=== PATIENT | female | born 1965 ===

== ENCOUNTER 2020-03-13 19:37 | Inpatient (IN) ==
[2020-03-13] MEDS ORDERED: methylPREDNISolone SOD SUC 125 MG/2 ML VIAL IV STA (20:33)
[2020-03-13] MEDS ORDERED: SODIUM CHLORIDE 0.9% 500 ML IV STA (20:33)
[2020-03-13] MEDS ORDERED: AZITHROMYCIN INJ 500 MG in SODIUM CHLORIDE 0.9% 250 ML IV STA (20:33)
[2020-03-13 20:40] LABS: Basophils % 0.2 % (0.0-0.8); Hematocrit 38.4 VOL% (35.7-47.0); Hemoglobin 11.9 GM/DL (12.0-16.0); Immature Granulocytes Absolute 0.45 #; Lymphocytes # 0.9 10*3/uL (1.4-4.0); Lymphocytes % 5.8 % (21.3-54.2); Mean Corpuscular Volume 92.8 FL (87-102); Mean Platelet Volume 11.4 FL (9.6-12.0); Monocytes % 2.2 % (1.7-12.7); Neutrophils % 88.8 % (38.7-73.9); Platelet Count 378 T/CUMM (130-400); Red Blood Count 4.14 MC/CUMM (3.8-5.5); Red Cell Distribution Width 14.2 % (9.3-17.3); White Blood Count 15.1 T/CUMM (4-12)
[2020-03-13 20:48] LABS: INR 1.6
[2020-03-13 21:02] LABS: Apearance,Urine CLEAR (Clear); Bilirubin,Urine Negative (Negative); Blood, Urine Small mg/dL (Negative); Glucose,Urine (UA) Negative (Negative); Ketones,Urine 20 mg/dL (Negative); Mucus,Urine Few /LPF (Occasional); Nitrite,Urine Negative (Negative); Protein,Urine 30 MG/DL; RBC,Urine 8 /HPF (0-4); Squamous Epithelial Cell,Urine Occasional /HPF (0-10); Urine Color Amber (Yellow); WBC,Urine 1 /HPF (0-6)
[2020-03-13 21:10] LABS: Albumin 2.3 G/DL (3.4-5.0); Bilirubin,Total 0.7 MG/DL (0.2-1.0); Osmolality,Calculated 302.7 MOS/KG (273-304); Total Protein 7.5 G/DL (6.4-8.3)
[2020-03-13 21:13] LABS: ABG Base Excess 1.6 MMOL/L (-2.5-2.5); ABG HCO3 25.5 MMOL/L (20-26); ABG Oxygen Saturation 82.9 % (95-100); ABG PCO2 39.2 MM HG (35-48); ABG PH 7.429 (7.35-7.45); ABG PO2 47.6 MM HG (80-95); Allen Test Positive
[2020-03-13] MEDS ORDERED: POTASSIUM CHLORIDE RIDER 10 MEQ in PREMIX 1 EACH IV ONE (21:25)
[2020-03-13] MEDS ORDERED: PIPERACILLIN/TAZOBACTAM 3,375 MG in SODIUM CHLORIDE 0.9% 100 ML IV STA (21:37)
[2020-03-13] MEDS ORDERED: ONDANSETRON 4 MG/2 ML VIAL IV PRN (22:24)
[2020-03-13] MEDS ORDERED: GLUCAGON 1 MG VIAL IM PRN (22:24)
[2020-03-13] MEDS ORDERED: MORPHINE 4 MG/1 ML VIAL IV PRN (22:24)
[2020-03-13] MEDS ORDERED: DEXTROSE 50% 25 GM/50 ML VIAL IV PRN (22:24)
[2020-03-14] MEDS ORDERED: VANCOMYCIN 1,000 MG VIAL ONE
[2020-03-14] MEDS ORDERED: VANCOMYCIN INJ 1,000 MG in SODIUM CHLORIDE 0.9% 250 ML IV SCH (00:30)
[2020-03-14 05:33] LABS: Basophils % 0.1 % (0.0-0.8); Hemoglobin 11.2 GM/DL (12.0-16.0); Immature Granulocytes % 2.5 %; Immature Granulocytes Absolute 0.51 #; Lymphocytes # 0.7 10*3/uL (1.4-4.0); Lymphocytes % 3.6 % (21.3-54.2); Mean Corpuscular HGB Conc 31.1 GM/DL (32-36); Mean Corpuscular Volume 92.1 FL (87-102); Mean Platelet Volume 11.6 FL (9.6-12.0); Monocytes % 1.3 % (1.7-12.7); Neutrophils % 92.5 % (38.7-73.9); Platelet Count 357 T/CUMM (130-400); Red Blood Count 3.91 MC/CUMM (3.8-5.5); Red Cell Distribution Width 14.1 % (9.3-17.3); White Blood Count 20.2 T/CUMM (4-12)
[2020-03-14 05:55] LABS: Calcium 8.9 MG/DL (8.5-10.1); Osmolality,Calculated 307.6 MOS/KG (273-304)
[2020-03-14 06:09] LABS: Band Neutrophils 2 % (0-10); Hypochromasia 1+; Lymphocytes 5 % (20-55); Microcytosis Slight; Ovalocytes Slight; Platelet Estimate Normal; Segmented Neutrophils 91 % (50-85); Total Cells Counted 100
[2020-03-14] MEDS: POTASSIUM CHLORIDE RIDER 10 MEQ in PREMIX 1 EACH IV PRN ×8 (06:23→23:52)
[2020-03-14] MEDS: SODIUM CHLOR 0.45% KCL 20 MEQ 20 MEQ/1,000 ML BAG IV SCH ×2 (06:37→18:04)
[2020-03-14] MEDS: PIPERACILLIN/TAZOBACTAM 3,375 MG in SODIUM CHLORIDE 0.9% 100 ML IV SCH ×3 (06:37→22:29)
[2020-03-14] MEDS: ENOXAPARIN 40 MG/0.4 ML SYRINGE SUBCUT SCH (09:33)
[2020-03-14] MEDS: AZITHROMYCIN INJ 500 MG in SODIUM CHLORIDE 0.9% 250 ML IV SCH (20:55)
[2020-03-15] MEDS: POTASSIUM CHLORIDE RIDER 10 MEQ in PREMIX 1 EACH IV PRN ×2 (00:49→01:48)
[2020-03-15] MEDS: SODIUM CHLOR 0.45% KCL 20 MEQ 20 MEQ/1,000 ML BAG IV SCH (02:51)
[2020-03-15] MEDS: PIPERACILLIN/TAZOBACTAM 3,375 MG in SODIUM CHLORIDE 0.9% 100 ML IV SCH ×3 (06:13→21:30)
[2020-03-15] MEDS: POTASSIUM CHLORIDE 20 MEQ/15 ML UDCUP PER TUBE PRN ×3 (06:38→11:52)
[2020-03-15 09:18] LABS: Basophils % 0.1 % (0.0-0.8); Hematocrit 34.5 VOL% (35.7-47.0); Hemoglobin 10.9 GM/DL (12.0-16.0); Immature Granulocytes % 2.6 %; Immature Granulocytes Absolute 0.48 #; Lymphocytes # 1.2 10*3/uL (1.4-4.0); Lymphocytes % 6.5 % (21.3-54.2); Mean Corpuscular HGB Conc 31.6 GM/DL (32-36); Mean Corpuscular Volume 91.3 FL (87-102); Mean Platelet Volume 11.8 FL (9.6-12.0); Neutrophils % 88.8 % (38.7-73.9); Platelet Count 403 T/CUMM (130-400); Red Blood Count 3.78 MC/CUMM (3.8-5.5); Red Cell Distribution Width 14.3 % (9.3-17.3); White Blood Count 18.7 T/CUMM (4-12)
[2020-03-15 09:23] LABS: Calcium 8.5 MG/DL (8.5-10.1); Osmolality,Calculated 301.7 MOS/KG (273-304)
[2020-03-15] MEDS: ENOXAPARIN 40 MG/0.4 ML SYRINGE SUBCUT SCH (09:25)
[2020-03-15] MEDS ORDERED: LORazepam 0.5 MG TABLET PO PRN (11:22)
[2020-03-15] MEDS ORDERED: LORazepam 1 MG TABLET PO PRN (11:30)
[2020-03-15] MEDS: POTASSIUM CHLORIDE INJ 20 MEQ in LACTATED RINGERS 1,000 ML IV SCH (11:56)
[2020-03-15] MEDS: hydrALAZINE 20 MG/1 ML VIAL IV PRN (14:14)
[2020-03-15] MEDS: METOPROLOL TARTRATE 50 MG TABLET PO SCH ×2 (15:35→21:16)
[2020-03-15] MEDS: traZODone 50 MG TABLET PO SCH (21:14)
[2020-03-15] MEDS: risperiDONE 1 MG TABLET PO SCH (21:15)
[2020-03-15] MEDS: SIMVASTATIN 20 MG TABLET PO SCH (21:15)
[2020-03-15] MEDS: APIXABAN 5 MG TABLET PO SCH (21:15)
[2020-03-15] MEDS: SERTRALINE 100 MG TABLET PO SCH (21:15)
[2020-03-16 06:13] LABS: Basophils % 0.1 % (0.0-0.8); Hematocrit 35.7 VOL% (35.7-47.0); Hemoglobin 11.4 GM/DL (12.0-16.0); Immature Granulocytes % 1.3 %; Immature Granulocytes Absolute 0.18 #; Lymphocytes # 0.8 10*3/uL (1.4-4.0); Lymphocytes % 5.6 % (21.3-54.2); Mean Corpuscular HGB Conc 31.9 GM/DL (32-36); Mean Corpuscular Volume 89.3 FL (87-102); Monocytes % 2.2 % (1.7-12.7); Neutrophils % 90.8 % (38.7-73.9); Platelet Count 447 T/CUMM (130-400); Red Cell Distribution Width 13.9 % (9.3-17.3); White Blood Count 13.9 T/CUMM (4-12)
[2020-03-16] MEDS: PIPERACILLIN/TAZOBACTAM 3,375 MG in SODIUM CHLORIDE 0.9% 100 ML IV SCH ×3 (06:18→22:30)
[2020-03-16] MEDS: AZITHROMYCIN INJ 500 MG in SODIUM CHLORIDE 0.9% 250 ML IV SCH ×2 (06:18→21:30)
[2020-03-16 06:34] LABS: Calcium 8.5 MG/DL (8.5-10.1); Osmolality,Calculated 294.1 MOS/KG (273-304)
[2020-03-16 06:56] LABS: Hypochromasia 1+; Lymphocytes 4 % (20-55); Ovalocytes Slight; Platelet Estimate Adequate; Segmented Neutrophils 94 % (50-85); Total Cells Counted 100
[2020-03-16 06:57] LABS: Microcytosis Slight
[2020-03-16] MEDS: POTASSIUM CHLORIDE INJ 20 MEQ in LACTATED RINGERS 1,000 ML IV SCH ×2 (07:09→08:09)
[2020-03-16] MEDS: POTASSIUM CHLORIDE 20 MEQ TABLET PO PRN (09:00)
[2020-03-16] MEDS: lisinopriL 20 MG TABLET PO SCH (09:00)
[2020-03-16] MEDS: LEVOTHYROXINE 175 MCG TABLET PO SCH (09:00)
[2020-03-16] MEDS: SERTRALINE 100 MG TABLET PO SCH ×2 (09:00→20:56)
[2020-03-16] MEDS: APIXABAN 5 MG TABLET PO SCH ×2 (09:00→20:55)
[2020-03-16] MEDS: METOPROLOL TARTRATE 50 MG TABLET PO SCH ×2 (09:00→20:55)
[2020-03-16 13:40] LABS: ABG Base Excess 3.3 MMOL/L (-2.5-2.5); ABG HCO3 27.1 MMOL/L (20-26); ABG PCO2 36.2 MM HG (35-48); ABG PH 7.477 (7.35-7.45); ABG PO2 46.3 MM HG (80-95); ABG TCO2 23.7 MMOL/L (23-27)
[2020-03-16] MEDS: SODIUM CHLOR 0.45% KCL 20 MEQ 20 MEQ/1,000 ML BAG IV SCH (16:45)
[2020-03-16] MEDS: VANCOMYCIN INJ 1,500 MG in SODIUM CHLORIDE 0.9% 500 ML IV SCH (16:45)
[2020-03-16] MEDS: risperiDONE 1 MG TABLET PO SCH (20:55)
[2020-03-16] MEDS: traZODone 50 MG TABLET PO SCH (20:55)
[2020-03-16] MEDS: SIMVASTATIN 20 MG TABLET PO SCH (20:56)
[2020-03-17 02:38] LABS: Basophils % 0.1 % (0.0-0.8); Hematocrit 34.2 VOL% (35.7-47.0); Immature Granulocytes % 0.9 %; Immature Granulocytes Absolute 0.13 #; Lymphocytes # 0.9 10*3/uL (1.4-4.0); Lymphocytes % 6.5 % (21.3-54.2); Mean Corpuscular HGB Conc 32.2 GM/DL (32-36); Mean Corpuscular Volume 90.2 FL (87-102); Neutrophils % 89.5 % (38.7-73.9); Platelet Count 426 T/CUMM (130-400); Red Blood Count 3.79 MC/CUMM (3.8-5.5); White Blood Count 14.2 T/CUMM (4-12)
[2020-03-17 03:01] LABS: Albumin 1.8 G/DL (3.4-5.0); Bilirubin,Total 0.4 MG/DL (0.2-1.0); Osmolality,Calculated 291.4 MOS/KG (273-304); Total Protein 6.1 G/DL (6.4-8.3)
[2020-03-17] MEDS: VANCOMYCIN INJ 1,500 MG in SODIUM CHLORIDE 0.9% 500 ML IV SCH ×2 (03:05→17:09)
[2020-03-17 03:21] LABS: Allen Test Positive
[2020-03-17 03:23] LABS: ABG Base Excess 0.9 MMOL/L (-2.5-2.5); ABG HCO3 24.3 MMOL/L (20-26); ABG Oxygen Saturation 81.9 % (95-100); ABG PCO2 34.7 MM HG (35-48); ABG PH 7.464 (7.35-7.45); ABG PO2 47.5 MM HG (80-95); ABG TCO2 25.4 MMOL/L (23-27)
[2020-03-17] MEDS: POTASSIUM CHLORIDE RIDER 10 MEQ in PREMIX 1 EACH IV PRN ×3 (06:16→22:30)
[2020-03-17] MEDS: PIPERACILLIN/TAZOBACTAM 3,375 MG in SODIUM CHLORIDE 0.9% 100 ML IV SCH ×3 (06:18→22:30)
[2020-03-17] MEDS: POTASSIUM CHLORIDE 20 MEQ TABLET PO PRN (10:24)
[2020-03-17] MEDS: APIXABAN 5 MG TABLET PO SCH ×2 (10:24→22:06)
[2020-03-17] MEDS: lisinopriL 20 MG TABLET PO SCH (10:24)
[2020-03-17] MEDS: METOPROLOL TARTRATE 50 MG TABLET PO SCH ×2 (10:24→22:06)
[2020-03-17] MEDS: SERTRALINE 100 MG TABLET PO SCH ×2 (10:25→22:06)
[2020-03-17] MEDS: LEVOTHYROXINE 175 MCG TABLET PO SCH (10:25)
[2020-03-17] MEDS ORDERED: FUROSEMIDE 40 MG/4 ML VIAL IV ONE (14:52)
[2020-03-17] MEDS: SODIUM CHLOR 0.45% KCL 20 MEQ 20 MEQ/1,000 ML BAG IV SCH (17:07)
[2020-03-17] MEDS: AZITHROMYCIN INJ 500 MG in SODIUM CHLORIDE 0.9% 250 ML IV SCH (21:30)
[2020-03-17] MEDS: traZODone 50 MG TABLET PO SCH (22:06)
[2020-03-17] MEDS: SIMVASTATIN 20 MG TABLET PO SCH (22:06)
[2020-03-17] MEDS: risperiDONE 1 MG TABLET PO SCH (22:06)
[2020-03-18] MEDS: VANCOMYCIN INJ 1,500 MG in SODIUM CHLORIDE 0.9% 500 ML IV SCH (02:50)
[2020-03-18 04:30] LABS: ABG Base Excess -0.2 MMOL/L (-2.5-2.5); ABG HCO3 24.1 MMOL/L (20-26); ABG Oxygen Saturation 88.1 % (95-100); ABG PCO2 39.8 MM HG (35-48); ABG PH 7.398 (7.35-7.45); ABG PO2 56.9 MM HG (80-95); ABG TCO2 22.3 MMOL/L (23-27); Allen Test Positive
[2020-03-18] MEDS: PIPERACILLIN/TAZOBACTAM 3,375 MG in SODIUM CHLORIDE 0.9% 100 ML IV SCH ×2 (06:30→18:32)
[2020-03-18 08:15] LABS: Basophils % 0.2 % (0.0-0.8); Hematocrit 32.6 VOL% (35.7-47.0); Hemoglobin 10.1 GM/DL (12.0-16.0); Immature Granulocytes % 0.8 %; Immature Granulocytes Absolute 0.11 #; Lymphocytes % 7.2 % (21.3-54.2); Mean Corpuscular Volume 92.1 FL (87-102); Monocytes % 4.7 % (1.7-12.7); Neutrophils % 87.1 % (38.7-73.9); Platelet Count 380 T/CUMM (130-400); Red Blood Count 3.54 MC/CUMM (3.8-5.5); White Blood Count 13.5 T/CUMM (4-12)
[2020-03-18 08:48] LABS: Albumin 1.7 G/DL (3.4-5.0); Bilirubin,Total 0.4 MG/DL (0.2-1.0); Calcium 8.1 MG/DL (8.5-10.1); Osmolality,Calculated 295.1 MOS/KG (273-304); Total Protein 5.8 G/DL (6.4-8.3)
[2020-03-18] MEDS: APIXABAN 5 MG TABLET PO SCH ×2 (10:07→23:43)
[2020-03-18] MEDS: METOPROLOL TARTRATE 50 MG TABLET PO SCH ×2 (10:07→23:43)
[2020-03-18] MEDS: SERTRALINE 100 MG TABLET PO SCH ×2 (10:07→23:44)
[2020-03-18] MEDS: LEVOTHYROXINE 175 MCG TABLET PO SCH (10:07)
[2020-03-18] MEDS: lisinopriL 20 MG TABLET PO SCH (10:07)
[2020-03-18] MEDS: AZITHROMYCIN 250 MG TABLET PO SCH (14:57)
[2020-03-18] MEDS: POTASSIUM CHLORIDE RIDER 10 MEQ in PREMIX 1 EACH IV PRN ×4 (16:10→22:30)
[2020-03-18] MEDS: hydrALAZINE 20 MG/1 ML VIAL IV PRN (19:48)
[2020-03-18] MEDS: SODIUM CHLOR 0.45% KCL 20 MEQ 20 MEQ/1,000 ML BAG IV SCH (22:20)
[2020-03-18] MEDS: traZODone 50 MG TABLET PO SCH (23:43)
[2020-03-18] MEDS: SIMVASTATIN 20 MG TABLET PO SCH (23:44)
[2020-03-18] MEDS: risperiDONE 1 MG TABLET PO SCH (23:44)
[2020-03-19] MEDS: POTASSIUM CHLORIDE RIDER 10 MEQ in PREMIX 1 EACH IV PRN (00:30)
[2020-03-19] MEDS: PIPERACILLIN/TAZOBACTAM 3,375 MG in SODIUM CHLORIDE 0.9% 100 ML IV SCH ×2 (02:20→10:40)
[2020-03-19] MEDS: METOPROLOL TARTRATE 5 MG/5 ML VIAL IV SCH ×4 (03:30→21:59)
[2020-03-19] MEDS ORDERED: METOPROLOL TARTRATE 5 MG/5 ML VIAL IV SCH (04:00)
[2020-03-19 05:29] LABS: Allen Test Positive
[2020-03-19 05:32] LABS: ABG Base Excess 0.7 MMOL/L (-2.5-2.5); ABG HCO3 24.9 MMOL/L (20-26); ABG Oxygen Saturation 90.8 % (95-100); ABG PCO2 43.3 MM HG (35-48); ABG PH 7.385 (7.35-7.45); ABG PO2 62.5 MM HG (80-95); ABG TCO2 23.1 MMOL/L (23-27)
[2020-03-19 07:15] LABS: Basophils % 0.1 % (0.0-0.8); Hematocrit 36.1 VOL% (35.7-47.0); Hemoglobin 11.2 GM/DL (12.0-16.0); Immature Granulocytes % 0.7 %; Immature Granulocytes Absolute 0.09 #; Lymphocytes # 0.6 10*3/uL (1.4-4.0); Lymphocytes % 4.7 % (21.3-54.2); Mean Corpuscular Volume 92.1 FL (87-102); Neutrophils % 89.5 % (38.7-73.9); Platelet Count 380 T/CUMM (130-400); Red Blood Count 3.92 MC/CUMM (3.8-5.5); Red Cell Distribution Width 14.2 % (9.3-17.3); White Blood Count 13.6 T/CUMM (4-12)
[2020-03-19 07:41] LABS: Anisocytosis Slight; Lymphocytes 5 % (20-55); Platelet Estimate Normal; Poikilocytosis Slight; Segmented Neutrophils 87 % (50-85); Total Cells Counted 100
[2020-03-19 09:04] LABS: Albumin 1.9 G/DL (3.4-5.0); Bilirubin,Total 0.8 MG/DL (0.2-1.0); Calcium 8.2 MG/DL (8.5-10.1); Osmolality,Calculated 291.4 MOS/KG (273-304)
[2020-03-19] MEDS: APIXABAN 5 MG TABLET PO SCH ×2 (10:25→21:59)
[2020-03-19] MEDS: SODIUM CHLOR 0.45% KCL 20 MEQ 20 MEQ/1,000 ML BAG IV SCH (10:27)
[2020-03-19] MEDS: lisinopriL 20 MG TABLET PO SCH (10:33)
[2020-03-19] MEDS: SERTRALINE 100 MG TABLET PO SCH ×2 (10:34→22:00)
[2020-03-19] MEDS: LEVOTHYROXINE 175 MCG TABLET PO SCH (10:34)
[2020-03-19] MEDS: AZITHROMYCIN 250 MG TABLET PO SCH (10:34)
[2020-03-19] MEDS: SODIUM CHLORIDE 0.45% 1,000 ML IV SCH (12:29)
[2020-03-19] MEDS: carvediloL 12.5 MG TABLET PO SCH ×2 (18:36→18:37)
[2020-03-19] MEDS: SIMVASTATIN 20 MG TABLET PO SCH (21:59)
[2020-03-19] MEDS: risperiDONE 1 MG TABLET PO SCH (21:59)
[2020-03-19] MEDS: traZODone 50 MG TABLET PO SCH (21:59)
[2020-03-20] MEDS: METOPROLOL TARTRATE 5 MG/5 ML VIAL IV SCH ×4 (03:04→22:08)
[2020-03-20 04:22] LABS: ABG Base Excess 4.9 MMOL/L (-2.5-2.5); ABG HCO3 28.7 MMOL/L (20-26); ABG Oxygen Saturation 90.3 % (95-100); ABG PCO2 44.9 MM HG (35-48); ABG PO2 58.4 MM HG (80-95); ABG TCO2 27.1 MMOL/L (23-27); Allen Test Positive
[2020-03-20 05:07] LABS: Basophils % 0.2 % (0.0-0.8); Hematocrit 34.6 VOL% (35.7-47.0); Hemoglobin 10.8 GM/DL (12.0-16.0); Immature Granulocytes % 0.7 %; Immature Granulocytes Absolute 0.07 #; Lymphocytes # 0.7 10*3/uL (1.4-4.0); Lymphocytes % 6.5 % (21.3-54.2); Mean Corpuscular HGB Conc 31.2 GM/DL (32-36); Mean Corpuscular Volume 91.3 FL (87-102); Mean Platelet Volume 12.5 FL (9.6-12.0); Monocytes % 6.4 % (1.7-12.7); Neutrophils % 86.2 % (38.7-73.9); Platelet Count 343 T/CUMM (130-400); Red Blood Count 3.79 MC/CUMM (3.8-5.5); Red Cell Distribution Width 14.2 % (9.3-17.3); White Blood Count 10.1 T/CUMM (4-12)
[2020-03-20 05:30] LABS: Calcium 8.3 MG/DL (8.5-10.1); Osmolality,Calculated 294.6 MOS/KG (273-304)
[2020-03-20] MEDS: SODIUM CHLORIDE 0.45% 1,000 ML IV SCH (08:39)
[2020-03-20] MEDS: APIXABAN 5 MG TABLET PO SCH ×2 (10:16→21:35)
[2020-03-20] MEDS: POTASSIUM CHLORIDE RIDER 10 MEQ in PREMIX 1 EACH IV PRN ×2 (10:16→13:15)
[2020-03-20] MEDS: carvediloL 12.5 MG TABLET PO SCH ×2 (10:16→17:18)
[2020-03-20] MEDS: LEVOTHYROXINE 175 MCG TABLET PO SCH (10:16)
[2020-03-20] MEDS: SERTRALINE 100 MG TABLET PO SCH ×2 (10:16→22:03)
[2020-03-20] MEDS: lisinopriL 20 MG TABLET PO SCH (10:56)
[2020-03-20] MEDS: INSULIN LISPRO 100 UNIT/ML SUBCUT SCH ×2 (13:15→18:24)
[2020-03-20] MEDS ORDERED: INSULIN NPH 100 UNIT/ML SUBCUT SCH (16:30)
[2020-03-20] MEDS: SIMVASTATIN 20 MG TABLET PO SCH (20:55)
[2020-03-20] MEDS: traZODone 50 MG TABLET PO SCH (22:01)
[2020-03-20] MEDS: risperiDONE 1 MG TABLET PO SCH (22:03)
[2020-03-21] MEDS: INSULIN LISPRO 100 UNIT/ML SUBCUT SCH ×5 (01:26→23:52)
[2020-03-21 03:07] LABS: ABG Base Excess 4.4 MMOL/L (-2.5-2.5); ABG HCO3 29.4 MMOL/L (20-26); ABG Oxygen Saturation 87.1 % (95-100); ABG PCO2 45.9 MM HG (35-48); ABG PH 7.425 (7.35-7.45); ABG PO2 54.1 MM HG (80-95); ABG TCO2 30.9 MMOL/L (23-27)
[2020-03-21] MEDS: METOPROLOL TARTRATE 5 MG/5 ML VIAL IV SCH (06:16)
[2020-03-21] MEDS: SODIUM CHLORIDE 0.45% 1,000 ML IV SCH (06:16)
[2020-03-21] MEDS: carvediloL 12.5 MG TABLET PO SCH ×2 (09:39→17:45)
[2020-03-21] MEDS: lisinopriL 20 MG TABLET PO SCH (09:39)
[2020-03-21] MEDS: LEVOTHYROXINE 175 MCG TABLET PO SCH (09:41)
[2020-03-21] MEDS: APIXABAN 5 MG TABLET PO SCH ×2 (09:41→20:25)
[2020-03-21] MEDS: SERTRALINE 100 MG TABLET PO SCH ×2 (09:41→20:25)
[2020-03-21] MEDS: SIMVASTATIN 20 MG TABLET PO SCH (20:25)
[2020-03-21] MEDS: risperiDONE 1 MG TABLET PO SCH (20:25)
[2020-03-21] MEDS: traZODone 50 MG TABLET PO SCH (20:25)
[2020-03-22 03:17] LABS: Basophils % 0.3 % (0.0-0.8); Hematocrit 32.5 VOL% (35.7-47.0); Hemoglobin 10.4 GM/DL (12.0-16.0); Immature Granulocytes % 0.4 %; Immature Granulocytes Absolute 0.03 #; Lymphocytes # 0.8 10*3/uL (1.4-4.0); Lymphocytes % 10.3 % (21.3-54.2); Mean Platelet Volume 12.6 FL (9.6-12.0); Monocytes % 5.5 % (1.7-12.7); Neutrophils % 83.5 % (38.7-73.9); Platelet Count 228 T/CUMM (130-400); Red Blood Count 3.65 MC/CUMM (3.8-5.5); White Blood Count 7.8 T/CUMM (4-12)
[2020-03-22 03:36] LABS: Calcium 7.9 MG/DL (8.5-10.1); Osmolality,Calculated 284.3 MOS/KG (273-304)
[2020-03-22] MEDS: SODIUM CHLORIDE 0.45% 1,000 ML IV SCH (04:23)
[2020-03-22 04:25] LABS: ABG Base Excess 6.2 MMOL/L (-2.5-2.5); ABG HCO3 29.8 MMOL/L (20-26); ABG Oxygen Saturation 84.6 % (95-100); ABG PCO2 42.7 MM HG (35-48); ABG PH 7.464 (7.35-7.45); ABG PO2 48.3 MM HG (80-95); ABG TCO2 27.6 MMOL/L (23-27); Allen Test Positive
[2020-03-22] MEDS: INSULIN LISPRO 100 UNIT/ML SUBCUT SCH ×3 (06:01→18:23)
[2020-03-22] MEDS: carvediloL 12.5 MG TABLET PO SCH ×2 (10:27→18:23)
[2020-03-22] MEDS: APIXABAN 5 MG TABLET PO SCH ×2 (10:27→21:09)
[2020-03-22] MEDS: lisinopriL 20 MG TABLET PO SCH (10:27)
[2020-03-22] MEDS: LEVOTHYROXINE 175 MCG TABLET PO SCH (10:27)
[2020-03-22] MEDS: SERTRALINE 100 MG TABLET PO SCH ×2 (10:27→21:09)
[2020-03-22] MEDS: SIMVASTATIN 20 MG TABLET PO SCH (21:09)
[2020-03-22] MEDS: traZODone 50 MG TABLET PO SCH (21:09)
[2020-03-22] MEDS: risperiDONE 1 MG TABLET PO SCH (21:09)
[2020-03-23] MEDS: INSULIN LISPRO 100 UNIT/ML SUBCUT SCH ×5 (00:10→23:00)
[2020-03-23] MEDS: carvediloL 12.5 MG TABLET PO SCH ×2 (10:57→19:00)
[2020-03-23] MEDS: SERTRALINE 100 MG TABLET PO SCH ×2 (10:57→21:40)
[2020-03-23] MEDS: LEVOTHYROXINE 175 MCG TABLET PO SCH (10:57)
[2020-03-23] MEDS: lisinopriL 20 MG TABLET PO SCH (10:57)
[2020-03-23] MEDS: APIXABAN 5 MG TABLET PO SCH ×2 (10:57→21:40)
[2020-03-23] MEDS: SIMVASTATIN 20 MG TABLET PO SCH (21:40)
[2020-03-23] MEDS: traZODone 50 MG TABLET PO SCH (21:40)
[2020-03-23] MEDS: risperiDONE 1 MG TABLET PO SCH (21:40)
[2020-03-24 05:52] LABS: Basophils % 0.2 % (0.0-0.8); Eosinophils % 0.1 % (0.00-10.9); Hematocrit 31.4 VOL% (35.7-47.0); Hemoglobin 9.8 GM/DL (12.0-16.0); Immature Granulocytes % 0.4 %; Immature Granulocytes Absolute 0.04 #; Lymphocytes # 0.9 10*3/uL (1.4-4.0); Lymphocytes % 8.9 % (21.3-54.2); Mean Corpuscular HGB Conc 31.2 GM/DL (32-36); Mean Corpuscular Volume 90.8 FL (87-102); Mean Platelet Volume 12.9 FL (9.6-12.0); Neutrophils % 85.4 % (38.7-73.9); Platelet Count 218 T/CUMM (130-400); Red Blood Count 3.46 MC/CUMM (3.8-5.5); Red Cell Distribution Width 13.6 % (9.3-17.3); White Blood Count 9.9 T/CUMM (4-12)
[2020-03-24 06:29] LABS: Calcium 8.3 MG/DL (8.5-10.1); Osmolality,Calculated 275.7 MOS/KG (273-304)
[2020-03-24] MEDS: INSULIN LISPRO 100 UNIT/ML SUBCUT SCH ×3 (07:22→18:42)
[2020-03-24] MEDS: APIXABAN 5 MG TABLET PO SCH ×2 (08:47→20:46)
[2020-03-24] MEDS: lisinopriL 20 MG TABLET PO SCH (08:47)
[2020-03-24] MEDS: LEVOTHYROXINE 175 MCG TABLET PO SCH (08:47)
[2020-03-24] MEDS: carvediloL 12.5 MG TABLET PO SCH ×2 (08:47→17:20)
[2020-03-24] MEDS: SERTRALINE 100 MG TABLET PO SCH ×2 (08:47→20:47)
[2020-03-24] MEDS ORDERED: POTASSIUM CHLORIDE INJ 50 MEQ in SODIUM CHLORIDE 0.9% 500 ML IV ONE (09:00)
[2020-03-24] MEDS ORDERED: ACETAMINOPHEN 650 MG SUPP RECTAL ONE (15:29)
[2020-03-24] MEDS: SIMVASTATIN 20 MG TABLET PO SCH (20:46)
[2020-03-24] MEDS: traZODone 50 MG TABLET PO SCH (20:46)
[2020-03-24] MEDS: risperiDONE 1 MG TABLET PO SCH (20:46)
[2020-03-25] MEDS: INSULIN LISPRO 100 UNIT/ML SUBCUT SCH ×4 (01:28→18:06)
[2020-03-25] MEDS: POTASSIUM CHLORIDE RIDER 10 MEQ in PREMIX 1 EACH IV PRN ×4 (09:01→14:00)
[2020-03-25] MEDS: lisinopriL 20 MG TABLET PO SCH (09:10)
[2020-03-25] MEDS: carvediloL 12.5 MG TABLET PO SCH ×2 (09:10→18:05)
[2020-03-25] MEDS: APIXABAN 5 MG TABLET PO SCH ×2 (09:10→20:08)
[2020-03-25] MEDS: SERTRALINE 100 MG TABLET PO SCH ×2 (09:10→20:08)
[2020-03-25] MEDS: LEVOTHYROXINE 175 MCG TABLET PO SCH (09:10)
[2020-03-25] MEDS: risperiDONE 1 MG TABLET PO SCH (20:08)
[2020-03-25] MEDS: traZODone 50 MG TABLET PO SCH (20:08)
[2020-03-25] MEDS: SIMVASTATIN 20 MG TABLET PO SCH (20:08)
[2020-03-26] MEDS: INSULIN LISPRO 100 UNIT/ML SUBCUT SCH ×2 (00:14→06:24)
[2020-03-26] MEDS ORDERED: ACETAMINOPHEN 325 MG TABLET PO PRN (04:40)
[2020-03-26] MEDS ORDERED: MORPHINE 4 MG/1 ML VIAL IV PRN (04:41)
[2020-03-26] MEDS ORDERED: PIPERACILLIN/TAZOBACTAM 3,375 MG in SODIUM CHLORIDE 0.9% 100 ML IV SCH (10:30)
[2020-03-26] MEDS ORDERED: SUCCINYLCHOLINE 200 MG/10 ML VIAL IV ONE (10:39)
[2020-03-26] MEDS ORDERED: ETOMIDATE 20 MG/10 ML VIAL IV ONE (10:39)
[2020-03-26] MEDS ORDERED: MIDAZOLAM 2 MG/2 ML VIAL IV ONE (10:41)
[2020-03-26] MEDS ORDERED: NOREPINEPHRINE 8 MG in SODIUM CHLORIDE 0.9% 242 ML IV PRN (10:41)
[2020-03-26] MEDS ORDERED: MIDAZOLAM 10 MG/2 ML VIAL ONE (10:42)
[2020-03-26] MEDS ORDERED: LORazepam 2 MG/1 ML VIAL IV PRN (10:46)
[2020-03-26 10:50] VITALS: BP 123/66
[2020-03-26] MEDS: lisinopriL 20 MG TABLET PO SCH (10:53)
[2020-03-26] MEDS: LEVOTHYROXINE 175 MCG TABLET PO SCH (10:53)
[2020-03-26] MEDS: APIXABAN 5 MG TABLET PO SCH (10:53)
[2020-03-26] MEDS: SERTRALINE 100 MG TABLET PO SCH (10:53)
[2020-03-26] MEDS: carvediloL 12.5 MG TABLET PO SCH (10:53)
[2020-03-26] MEDS ORDERED: fentaNYL 25 MCG/HR PATCH TRANSDERM SCH (11:00)
[2020-03-26] MEDS: MORPHINE 4 MG/1 ML VIAL IV PRN ×5 (11:15→13:36)
== END 2020-03-26 15:10 | disposition expired | DRG 137 ==
LOC: N.ED 19:37 → SUATTDRO 22:24 → SUPCPDRO 22:24 → N.EDINP 22:24 → N.CC 03-14 00:34 → N.2W 03-15 16:57 → N.ICU 03-26 10:02
PROVIDERS: ADMIT Internal Medicine; ATTEND Internal Medicine